=== PATIENT | female | born 1965 | race Caucasian/White ===

== ENCOUNTER 2018-10-04 06:41 | Emergency (ER) | payer BC ==
[2018-10-04 08:14] LABS: ABSOLUTE EOSINOPHILS # (AUTO) 0.3 10^3/uL (0.0-0.6); ABSOLUTE LYMPHOCYTES (AUTO) 1.1 10^3/uL (0.5-4.7); ABSOLUTE MONOCYTES (AUTO) 0.7 10^3/uL (0.1-1.4); ABSOLUTE NEUT (AUTO) 6.8 10^3/uL (1.7-8.2); BASOPHILS % (AUTO) 0.3 % (0-2); EOSINOPHILS % (AUTO) 3.5 % (0-6); HEMATOCRIT 48.4 % (36.0-47.0); HEMOGLOBIN 16.6 g/dL (12.0-15.5); LYMPHOCYTES % (AUTO) 12.6 % (13-45); MEAN CORPUSCULAR HEMOGLOBIN 32.6 pg (27.0-33.4); MEAN CORPUSCULAR HGB CONC 34.3 g/dL (32.0-36.0); MEAN CORPUSCULAR VOLUME 95 fl (80-97); MONOCYTES % (AUTO) 7.5 % (3-13); PLATELET COUNT 230 10^3/uL (150-450); RED BLOOD COUNT 5.08 10^6/uL (3.72-5.28); SEGMENTED NEUTROPHILS % (AUTO) 76.1 % (42-78); TOTAL CELLS COUNTED % (AUTO) 100 %; WHITE BLOOD COUNT 8.9 10^3/uL (4.0-10.5)
[2018-10-04] MEDS ORDERED: DIPHENHYDRAMINE HCL 50 MG/ML VIAL IV ONE (08:20)
[2018-10-04] MEDS ORDERED: KETOROLAC TROMETHAMINE INJ/PF 30 MG/1 ML SDV IV ONE (08:20)
[2018-10-04] MEDS ORDERED: NORMAL SALINE 1000 ML 1,000 ML IV ONE (08:20)
[2018-10-04] MEDS ORDERED: PROCHLORPERAZINE EDISYLATE INJ 10 MG/2 ML VIAL IM ONE (08:20)
[2018-10-04 08:38] LABS: ALANINE AMINOTRANSFERASE 20 U/L (9-52); ALBUMIN 4.7 g/dL (3.5-5.0); ALKALINE PHOSPHATASE 47 U/L (38-126); ANION GAP 10 (5-19); ASPARTATE AMINO TRANSFERASE 23 U/L (14-36); BILIRUBIN,DIRECT 0.3 mg/dL (0.0-0.4); BILIRUBIN,TOTAL 1.3 mg/dL (0.2-1.3); BLOOD UREA NITROGEN 14 mg/dL (7-20); CALCIUM 9.8 mg/dL (8.4-10.2); CARBON DIOXIDE 31 mmol/L (22-30); CHLORIDE 103 mmol/L (98-107); GLUCOSE 101 mg/dL (75-110); POTASSIUM 4.3 mmol/L (3.6-5.0); SODIUM 143.8 mmol/L (137-145); TOTAL PROTEIN 8.4 g/dL (6.3-8.2)
[2018-10-04 08:41] LABS: APPEARANCE,URINE CLEAR; BILIRUBIN,URINE NEGATIVE (NEGATIVE); COLOR,URINE YELLOW; GLUCOSE, URINE NEGATIVE (NEGATIVE); KETONES,URINE NEGATIVE (NEGATIVE); LEUKOCYTE ESTERASE,URINE NEGATIVE (NEGATIVE); NITRITE,URINE NEGATIVE (NEGATIVE); PROTEIN,URINE NEGATIVE (NEGATIVE); URINE SPECIFIC GRAVITY 1.017; UROBILINOGEN,URINE NEGATIVE mg/dL (<2.0)
--- NOTE | 2018-10-04 10:08 | ER Document Report ---
Entered by FLORESITA WHITNEY SCRIBE 10/04/18 0821 Acting as scribe for:ASHLEY FISHMAN MD ED General - General Chief Complaint: Vomiting Stated Complaint: VOMITTING Time Seen by Provider: 10/04/18 08:05 Primary Care Provider: LEO ALVAREZ MD [Primary Care Provider] - Follow up as needed Mode of Arrival: Ambulatory Information source: Patient Notes: 53-year-old female who presents to the emergency department today with complaints of a 3-day history of a GI illness. Patient states that x2 days ago her only symptom was really just a lack of appetite. Patient's states yesterday she developed some nausea without vomiting but was able to eat chicken noodle soup at around 1700 yesterday and kept it down. Patient states that she slept m ost of yesterday, stating that she had no energy. Patient states this morning when waking up she felt generally weak, drank a cup coffee and developed a headache shortly after. Patient states she took Imitrex today as she has a history of migraine headaches. Patient states that she noticed when she woke up this morning that she had bilateral shoulder and neck pain as if she "slept on it wrong". Patient states she has had some epigastric abdominal pain. Patient denies any photophobia. TRAVEL OUTSIDE OF THE [place] IN LAST 30 DAYS: No - Related Data Allergies/Adverse Reactions: No Known Allergies Allergy (Unverified 12/14/11 15:31) Past Medical History - General Information source: Patient - Social History Smoking Status: Former Smoker Frequency of alcohol use: Occasional Drug Abuse: None Lives with: Family Family History: Reviewed & Not Pertinent Neurological Medical History: Reports: Hx Migraine GI Medical History: Reports: Hx Gastroesophageal Reflux Disease Psychiatric Medical History: Reports: Hx Anxiety, Hx Depression Past Surgical History: Reports: Hx Section - x3, Hx Herniorrhaphy - Right inguinal - Immunizations Hx Diphtheria, Pertussis, Tetanus Vaccination: Yes Review of Systems - Review of Systems Constitutional: See HPI, Other - no appetite EENT: No symptoms reported Cardiovascular: No symptoms reported Respiratory: No symptoms reported Gastrointestinal: See HPI, Abdominal pain, Nausea. denies: Vomiting Genitourinary: No symptoms reported Female Genitourinary: No symptoms reported Musculoskeletal: See HPI, Neck pain, Other - shoulder pain Skin: No symptoms reported Hematologic/Lymphatic: No symptoms reported Neurological/Psychological: Other - denies photophobia -: Yes All other systems reviewed and negative Physical Exam - Vital signs Vitals: Temp Pulse Resp BP Pulse Ox 97.4 F 51 L 16 163/97 H 100 10/04/18 06:59 10/04/18 06:59 10/04/18 06:59 10/04/18 06:59 10/04/18 06:59 - Notes Notes: Physical Exam: General: Alert, appears well. HEENT: Normocephalic. Atraumatic. PERRL. Extraocular movements intact. Oropharynx clear. Dry mucous membranes. No posterior oropharynx erythema or exudate. Neck: Supple. Posterior cervical musculature tenderness with palpation, scalp musculature tenderness with palpation, trapezius tenderness with palpation. Respiratory: No respiratory distress. Clear and equal breath sounds bilaterally. Cardiovascular: Regular rate and rhythm. Abdominal: Epigastric tenderness with palpation.No distension. Normal Bowel Sounds. Back: Non-tender. No deformity or step off. Extremities: Moves all four extremities. Upper extremities: Normal inspection. Normal ROM. Lower extremities: Normal inspection. No edema. Normal ROM. Neurological: Normal cognition. AAOx4. Normal speech. Psychological: Normal affect. Normal Mood. Skin: Warm. Dry. Normal color. Course - Re-evaluation Re-evalutation: 10/04/18 10:12 Patient reports her headache is considerably better, nausea is gone. She is going to try oral fluids and if she keeps that down she will go home. 10/04/18 11:43 Patient was able to keep fluids down and feels comfortable going home. - Vital Signs Vital signs: Temp Pulse Resp BP Pulse Ox 97.4 F 51 L 16 163/97 H 100 10/04/18 06:59 10/04/18 06:59 10/04/18 06:59 10/04/18 06:59 10/04/18 06:59 - Laboratory Result Diagrams: 10/04/18 07:54 10/04/18 07:54 Laboratory results interpreted by me: 10/04/18 10/04/18 07:54 07:54 Hgb 16.6 H Hct 48.4 H Lymphocytes % 12.6 L Carbon Dioxide 31 H Total Protein 8.4 H Discharge - Discharge Clinical Impression: Muscle tension headache Nausea and vomiting Qualifiers: Vomiting type: unspecified Vomiting Intractability: non-intractable Qualified Code(s): R11.2 - Nausea with vomiting, unspecified Condition: Stable Disposition: HOME, SELF-CARE Additional Instructions: Headache: The physician does not feel that the headache you are experiencing has a serious underlying cause. Most headaches are due to emotional stress, with resultant muscle tension (tension headache). Occasionally, headaches are secondary to changes in the blood vessels of the scalp (vascular headache and migraine headache). Sometimes, a headache is the first symptom of another developing illness, such as a viral infection. You have no evidence of stroke, bleeding, meningitis, or other serious cause of your headache. The treatment of headaches varies with the severity and cause of the pain. Not all headaches need pain shots. In fact, there is evidence that using narcotics for headaches may make them worse in the long run. The physician will determine the therapy that's in your best interest. If you develop a fever, if the headache is different from any you've previously experienced, or if the headache progressively worsens, then call your physician at once or go to the emergency room. Vomiting: Vomiting can be part of many illnesses. Most cases of vomiting are due to gastroenteritis, usually a viral infection in the intestinal tract. There is no specific treatment. The disease will end by itself. For now, the main danger to your child is dehydration. During the first few hours of the illness, give clear liquids, such as Pedialyte. Try to give small quantities frequently, such as a teaspoon of liquid every minute or about an ounce of fluids every five to ten minutes. Medications may be prescribed by the physician for special cases. After an hour or two of fluids without vomiting, add rice cereal, toast, applesauce, or bananas and other more solid foods to the clear liquids. Call the physician or go to the hospital if vomiting increases or blood appears in the bowel movement or vomitus; if your child fails to improve, or if signs of dehydration occur (no wet diapers for eight to twelve hours, tongue and mouth become dry, not acting as alert as usual). Drink small sips cool clear liquids today. Rest and sleep in a cool dark quiet room. Take the medication as dispensed for nausea if needed. You also receive a prescription that you can fill later today if you find that you have continued nauseousness. Follow-up with your doctor tomorrow if not feeling better. RETURN TO THE EMERGENCY ROOM IF ANY NEW OR WORSENING SYMPTOMS. Prescriptions: Ondansetron [Zofran Odt 4 mg Tablet] 1 - 2 tab PO Q4H #10 tab.rapdis Forms: Return to Work Referrals: LEO ALVAREZ MD [Primary Care Provider] - Follow up as needed Scribe Attestation: 10/04/18 09:13 I personally performed the services described in the documentation, reviewed and edited the documentation which was dictated to the scribe in my presence, and it accurately records my words and actions. I personally performed the services described in the documentation, reviewed and edited the documentation which was dictated to the scribe in my presence, and it accurately records my words and actions.
[2018-10-04 10:33] LABS: LIPASE 131.4 U/L (23-300)
[2018-10-04] MEDS ORDERED: ONDANSETRON ODT 4 MG TAB (6 TAB/ER DISP) PO PRN (11:46)
[2018-10-04 12:26] VITALS: BP 138/76
== END 2018-10-04 12:35 | disposition home or self-care (01) ==
LOC: ER 06:41
DX: R11.2 Nausea with vomiting, unspecified (principal); G44.209 Tension-type headache, unspecified, not intractable; G43.909 Migraine, unspecified, not intractable, without status migrainosus; R10.13 Epigastric pain; M25.511 Pain in right shoulder; M25.512 Pain in left shoulder; M54.2 Cervicalgia; R63.0 Anorexia; Z87.891 Personal history of nicotine dependence
CPT/HCPCS: 99284; 96372; 96361; 96374; 96375; 36415; 83690; 85025; 80053; 81001; J1200; J1885; J0780; J7030

== ENCOUNTER 2019-12-04 10:10 | Emergency (ER) | payer BC ==
[2019-12-04] MEDS ORDERED: ONDANSETRON HCL INJ/PF 4 MG/2 ML SDV IV ONE (10:41)
[2019-12-04] MEDS ORDERED: DIPHENHYDRAMINE HCL 50 MG/ML VIAL IV ONE (11:10)
--- NOTE | 2019-12-04 11:11 | ER Document Report ---
ED General - General Chief Complaint: Vomiting Stated Complaint: HEADACHE,VOMITING,BODY ACHES Time Seen by Provider: 12/04/19 11:06 Primary Care Provider: YAMILET ALVAREZ MD [NO LOCAL MD] - Follow up as needed TRAVEL OUTSIDE OF THE [place] IN LAST 30 DAYS: No - HPI Patient complains to provider of: Headache, nausea, vomiting Notes: With a lengthy history of migraines presents after waking up this morning with another bad migraine 10/10 throbbing in nature without radiation is associated profound nausea vomiting. Hyperventilating as well describing tingling in her upper extremities. No focal neurologic deficit. Denies any head trauma. Denies any neck pain. Nothing makes the pain better or worse. Denies any fever or IV drug use. - Related Data Allergies/Adverse Reactions: No Known Allergies Allergy (Verified 12/04/19 10:15) Past Medical History - Social History Smoking Status: Current Every Day Smoker Family History: Reviewed & Not Pertinent Neurological Medical History: Reports: Hx Migraine Renal/ Medical History: Denies: Hx Peritoneal Dialysis GI Medical History: Reports: Hx Gastroesophageal Reflux Disease Psychiatric Medical History: Reports: Hx Anxiety, Hx Depression Past Surgical History: Reports: Hx Section - x3, Hx Herniorrhaphy - Right inguinal - Immunizations Hx Diphtheria, Pertussis, Tetanus Vaccination: Yes Review of Systems - Review of Systems Notes: REVIEW OF SYSTEMS: CONSTITUTIONAL: -fevers, -chills EENT: -eye pain, -difficulty swallowing, -nasal congestion CARDIOVASCULAR: -chest pain, -syncope. RESPIRATORY: -cough, -SOB GASTROINTESTINAL: positive Nausea and vomiting GENITOURINARY: -dysuria, -hematuria MUSCULOSKELETAL: -back pain, -neck pain SKIN: -rash or skin lesions. HEMATOLOGIC: -easy bruising or bleeding. LYMPHATIC: -swollen, enlarged glands. NEUROLOGICAL: positive headache PSYCHIATRIC: -anxiety, -depression. ALL OTHER SYSTEMS REVIEWED AND NEGATIVE. Physical Exam - Vital signs Vitals: Temp Pulse Resp BP Pulse Ox 97.5 F 58 L 16 146/104 H 100 12/04/19 10:20 12/04/19 10:20 12/04/19 10:20 12/04/19 10:20 12/04/19 10:20 Course - Re-evaluation Re-evalutation: 12/04/19 11:19 Appearing female in no acute distress presents with apparent acute exacerbation of her migraines. 12/04/19 12:46 Appearing female no acute distress given analgesia and antiemetics for headache with fluid resuscitation feeling markedly improved. Extensive lab work-up shows mild leukocytosis. CT angiogram head and neck unremarkable. Patient be discharged home with prescription for Imitrex at her request. Given strict return precautions venting should worsen or change please return - Vital Signs Vital signs: Temp Pulse Resp BP Pulse Ox 97.5 F 58 L 22 H 143/94 H 100 12/04/19 11:08 12/04/19 10:20 12/04/19 11:04 12/04/19 11:04 12/04/19 11:04 - Laboratory Result Diagrams: 12/04/19 11:03 12/04/19 11:03 Laboratory results interpreted by me: 12/04/19 12/04/19 11:03 11:03 WBC 13.4 H Hgb 16.5 H Hct 49.1 H Lymph % (Auto) 9.0 L Absolute Neuts (auto) 11.3 H Seg Neutrophils % 84.3 H Glucose 148 H Calcium 10.4 H - EKG Interpretation by Me Additional EKG results interpreted by me: 12/04/19 11:33 Normal sinus rhythm 52 bpm, normal NC, normal QRS, no ST elevations or depressions. Discharge - Discharge Clinical Impression: Muscle contraction headache Condition: Stable Disposition: HOME, SELF-CARE Instructions: Headache ([facility]) Prescriptions: Sumatriptan Succinate [Imitrex] 100 mg PO BID #6 tablet Referrals: YAMILET ALVAREZ MD [NO LOCAL MD] - Follow up as needed
[2019-12-04 11:18] LABS: ABSOLUTE BASOPHILS # (AUTO) 0.1 10^3/uL (0.0-0.2); ABSOLUTE EOSINOPHILS # (AUTO) 0.2 10^3/uL (0.0-0.6); ABSOLUTE LYMPHOCYTES (AUTO) 1.2 10^3/uL (0.5-4.7); ABSOLUTE MONOCYTES (AUTO) 0.6 10^3/uL (0.1-1.4); ABSOLUTE NEUT (AUTO) 11.3 10^3/uL (1.7-8.2); BASOPHILS % (AUTO) 0.5 % (0-2); EOSINOPHILS % (AUTO) 1.6 % (0-6); HEMATOCRIT 49.1 % (36.0-47.0); HEMOGLOBIN 16.5 g/dL (12.0-15.5); MEAN CORPUSCULAR HEMOGLOBIN 31.3 pg (27.0-33.4); MEAN CORPUSCULAR HGB CONC 33.6 g/dL (32.0-36.0); MEAN CORPUSCULAR VOLUME 93 fl (80-97); MONOCYTES % (AUTO) 4.6 % (3-13); PLATELET COUNT 269 10^3/uL (150-450); RED BLOOD COUNT 5.28 10^6/uL (3.72-5.28); RED CELL DISTRIBUTION WIDTH 13.3 % (11.5-14.0); SEGMENTED NEUTROPHILS % (AUTO) 84.3 % (42-78); TOTAL CELLS COUNTED % (AUTO) 100 %; WHITE BLOOD COUNT 13.4 10^3/uL (4.0-10.5)
[2019-12-04 11:38] LABS: ALBUMIN 4.7 g/dL (3.5-5.0); ALKALINE PHOSPHATASE 79 U/L (38-126); ANION GAP 9 (5-19); ASPARTATE AMINO TRANSFERASE 26 U/L (14-36); BLOOD UREA NITROGEN 12 mg/dL (7-20); CALCIUM 10.4 mg/dL (8.4-10.2); CARBON DIOXIDE 26 mmol/L (22-30); CHLORIDE 106 mmol/L (98-107); GLUCOSE 148 mg/dL (75-110); POTASSIUM 4.1 mmol/L (3.6-5.0); TOTAL PROTEIN 8.2 g/dL (6.3-8.2)
--- NOTE | 2019-12-04 12:08 | EKG REPORT ---
SEVERITY:- BORDERLINE ECG - SINUS BRADYCARDIA NONSPECIFIC INTRAVENTRICULAR CONDUCTION DELAY : Confirmed by: Grupo Sinclair MD 04-Dec-2019 12:08:19
--- NOTE | 2019-12-04 12:26 | RADIOLOGY REPORT (SQ) ---
EXAM DESCRIPTION: CTA NECK IMAGES COMPLETED DATE/TIME: 12/04/2019 12:06 pm REASON FOR STUDY: headache COMPARISON: None. TECHNIQUE: Axial dynamic scanning technique with dynamic contrast enhancement through the extra-vessel scrapper nial carotid and vertebral arteries. Multiplanar reconstruction. 3-D MIPS and Volume-rendered imag es acquired at the workstation and saved to PACS. Images are reviewed in soft tissue, bone, lung w indows. All CT scanners at this facility use dose modulation, iterative reconstruction, and/or weight based d osing when appropriate to reduce radiation dose to as low as reasonably achievable (ALARA). [facility]: Dose Right [facility]: CareDose [facility]: Dose Right [facility]: Teradose 4D [facility]: [employer] CONTRAST TYPE AND DOSE: 70 cc Omnipaque 350- low osmolar. RENAL FUNCTION: BUN 12 creatinine 0.71 LIMITATIONS: None. FINDINGS: AORTIC ARCH: Normal three-vessel origin. Bilateral subclavian arteries are patent. No d issection. RIGHT CAROTIDS: Patent common, internal and external carotid arteries without suggestion of significa nt stenosis or irregular plaque. No dissection. Tortuous ICA RIGHT VERTEBRAL: Patent. No dissection. LEFT CAROTIDS: Patent common, internal and external carotid arteries without suggestion of significan t stenosis or irregular plaque. No dissection. Tortuous ICA LEFT VERTEBRAL: Patent. No dissection. OTHER: No other significant finding. OTHER: 3-D reconstructions confirm findings. IMPRESSION: Essentially normal CTA of the extracranial carotid and vertebral arteries. The internal carotid arteries are somewhat tortuous. COMMENT: Quality ID #[id number]: Measurements of distal internal carotid diameter were used as the denomina tor for stenosis measurement. TECHNICAL DOCUMENTATION: JOB ID: [id number] Quality ID # [id number]: Final reports with documentation of one or more dose reduction techniques (e.g., Au tomated exposure control, adjustment of the mA and/or kV according to patient size, use of iterative reconstruction technique) 2010 [employer]- All Rights Reserved Reading location - IP/workstation name: [email or web address]
--- NOTE | 2019-12-04 12:36 | RADIOLOGY REPORT (SQ) ---
EXAM DESCRIPTION: CTA HEAD IMAGES COMPLETED DATE/TIME: 12/04/2019 12:05 pm REASON FOR STUDY: headache COMPARISON: None. TECHNIQUE: Post IV contrast scanning, thin section axial imaging through the brain to evaluate the a rterial structures. Source and MIP images are saved and reviewed on PACS. Advanced 3D imaging as volume-rendering, MIPs, SSD performed? No All CT scanners at this facility use dose modulation, iterative reconstruction, and/or weight based d osing when appropriate to reduce radiation dose to as low as reasonably achievable (ALARA). [facility]: Dose Right [facility]: CareDose [facility]: Dose Right [facility]: Teradose 4D [facility]: [employer] CONTRAST TYPE AND DOSE: contrast/concentration: Isovue 350.00 mmol/ml; Total Contrast Delivered: 70. 0 ml; Total Saline Delivered: 69.9 ml RENAL FUNCTION: BUN 12 creatinine 0.71 LIMITATIONS: None. FINDINGS: [place]: The anterior, middle, posterior cerebral arteries are all patent. No ev idence of aneurysm or focal stenosis. POSTERIOR CIRCULATION: The distal vertebral arteries are patent as is the basilar artery. No aneurysm . BRAIN: No gross enhancing lesions as visualized. The superior cerebral hemispheres are not included in the field of view. BONES: Intact as visualized. SINUSES: No fluid or mucosal thickening. OTHER: No other significant finding. IMPRESSION: NO CTA EVIDENCE OF STENOSIS OR ANEURYSM OF THE [place]. TECHNICAL DOCUMENTATION: JOB ID: [id number] Quality ID # [id number]: Final reports with documentation of one or more dose reduction techniques (e.g., Au tomated exposure control, adjustment of the mA and/or kV according to patient size, use of iterative reconstruction technique) 2010 [employer]- All Rights Reserved Reading location - IP/workstation name: [email or web address]
[2019-12-04 13:44] VITALS: BP 111/62
== END 2019-12-04 13:44 | disposition home or self-care (01) ==
LOC: ER 10:10
DX: R51 Headache (principal); R11.2 Nausea with vomiting, unspecified; D72.829 Elevated white blood cell count, unspecified; R06.4 Hyperventilation; R20.2 Paresthesia of skin; F17.200 Nicotine dependence, unspecified, uncomplicated; Z86.69 Personal history of other diseases of the nervous system and sense organs
CPT/HCPCS: 93005; 99284; 96374; 96375; 36415; 85025; 80053; 70496; 70498; 93010; J1200; J2405

== ENCOUNTER 2020-01-26 20:06 | Observation (INO) | payer BC ==
[2020-01-26] MEDS ORDERED: SUMATRIPTAN SUCCINATE 100 MG TABLET PO ONE (20:35)
[2020-01-26] MEDS ORDERED: SUMATRIPTAN SUCCINATE 100 MG TABLET ONE (20:39)
--- NOTE | 2020-01-26 20:41 | ER Document Report ---
ED Medical Screen (RME) - General Chief Complaint: Near Syncope Stated Complaint: RAPID ONSET DIZZINESS Time Seen by Provider: 01/26/20 20:31 Primary Care Provider: JULIO CESAR PALACIOS [Primary Care Provider] - Follow up as needed Mode of Arrival: Ambulatory Information source: Patient Notes: 54-year-old female presented to ED for complaint of dizziness lightheadedness and near syncope at work. She states it was almost of her headache break and she also got very dizzy and lightheaded. She thought she was going to pass out. States after she got dizzy and lightheaded then she left a headache. She does have a history of migraines. She does take Imitrex for her migraines. Have ordered her Imitrex p.o. the dose that she normally takes. She states her pain is a3/5 at this time. She is alert oriented respirations regular nonlabored speaking in full sentences. She does smoke 1 or 2 cigarettes a day rarely drinks alcohol does smoke marijuana. She is has a history of 3 C-sections right inguinal hernia repair migraine headaches and she lives with her significant other. Eulaliami TRAVEL OUTSIDE OF THE [place] IN LAST 30 DAYS: No - Related Data Allergies/Adverse Reactions: No Known Allergies Allergy (Verified 12/04/19 10:15) Past Medical History - Social History Chew tobacco use (# tins/day): No Frequency of alcohol use: Rare Drug Abuse: Marijuana Neurological Medical History: Reports: Hx Migraine Renal/ Medical History: Denies: Hx Peritoneal Dialysis GI Medical History: Reports: Hx Gastroesophageal Reflux Disease Psychiatric Medical History: Reports: Hx Anxiety, Hx Depression Past Surgical History: Reports: Hx Section - x3, Hx Herniorrhaphy - Right inguinal - Immunizations Hx Diphtheria, Pertussis, Tetanus Vaccination: Yes Physical Exam - Vital signs Vitals: Temp Pulse Resp BP Pulse Ox 98.0 F 52 L 17 132/79 H 97 01/26/20 20:16 01/26/20 20:16 01/26/20 20:16 01/26/20 20:16 01/26/20 20:16 Course - Vital Signs Vital signs: Temp Pulse Resp BP Pulse Ox 98.0 F 52 L 17 132/79 H 97 01/26/20 20:31 01/26/20 20:16 01/26/20 20:16 01/26/20 20:16 01/26/20 20:16 Doctor's Discharge - Discharge Referrals: LOCALMD,NO [Primary Care Provider] - Follow up as needed
[2020-01-26 21:19] LABS: APPEARANCE,URINE CLEAR; BILIRUBIN,URINE NEGATIVE (NEGATIVE); COLOR,URINE YELLOW; GLUCOSE, URINE NEGATIVE (NEGATIVE); KETONES,URINE NEGATIVE (NEGATIVE); LEUKOCYTE ESTERASE,URINE NEGATIVE (NEGATIVE); NITRITE,URINE NEGATIVE (NEGATIVE); PROTEIN,URINE NEGATIVE (NEGATIVE); URINE SPECIFIC GRAVITY 1.011; UROBILINOGEN,URINE NEGATIVE mg/dL (<2.0)
[2020-01-26 21:28] LABS: ALBUMIN 4.2 g/dL (3.5-5.0); ALKALINE PHOSPHATASE 69 U/L (38-126); ANION GAP 8 (5-19); ASPARTATE AMINO TRANSFERASE 31 U/L (14-36); BILIRUBIN,DIRECT 0.3 mg/dL (0.0-0.4); BILIRUBIN,TOTAL 0.6 mg/dL (0.2-1.3); BLOOD UREA NITROGEN 12 mg/dL (7-20); CALCIUM 8.7 mg/dL (8.4-10.2); CARBON DIOXIDE 26 mmol/L (22-30); CHLORIDE 105 mmol/L (98-107); CREATINE KINASE 95 U/L (30-135); GLUCOSE 85 mg/dL (75-110); POTASSIUM 4.8 mmol/L (3.6-5.0); TOTAL PROTEIN 7.1 g/dL (6.3-8.2)
[2020-01-26 21:32] LABS: ABSOLUTE BASOPHILS # (AUTO) 0.1 10^3/uL (0.0-0.2); ABSOLUTE EOSINOPHILS # (AUTO) 0.3 10^3/uL (0.0-0.6); ABSOLUTE LYMPHOCYTES (AUTO) 1.7 10^3/uL (0.5-4.7); ABSOLUTE MONOCYTES (AUTO) 0.7 10^3/uL (0.1-1.4); ABSOLUTE NEUT (AUTO) 5.3 10^3/uL (1.7-8.2); BASOPHILS % (AUTO) 0.7 % (0-2); EOSINOPHILS % (AUTO) 3.9 % (0-6); HEMATOCRIT 44.5 % (36.0-47.0); HEMOGLOBIN 15.1 g/dL (12.0-15.5); LYMPHOCYTES % (AUTO) 20.8 % (13-45); MEAN CORPUSCULAR HEMOGLOBIN 31.7 pg (27.0-33.4); MEAN CORPUSCULAR HGB CONC 33.8 g/dL (32.0-36.0); MEAN CORPUSCULAR VOLUME 94 fl (80-97); PLATELET COUNT 262 10^3/uL (150-450); RED BLOOD COUNT 4.75 10^6/uL (3.72-5.28); RED CELL DISTRIBUTION WIDTH 13.1 % (11.5-14.0); SEGMENTED NEUTROPHILS % (AUTO) 65.6 % (42-78); TOTAL CELLS COUNTED % (AUTO) 100 %
[2020-01-26] MEDS ORDERED: RINGERS SOLUTION,LACTATED 1,000 ML IV ONE (23:12)
--- NOTE | 2020-01-26 23:21 | ER Document Report ---
ED Dizziness/Weakness - General Chief Complaint: Near Syncope Stated Complaint: RAPID ONSET DIZZINESS Time Seen by Provider: 01/26/20 20:31 Mode of Arrival: Ambulatory Information source: Patient Notes: Patient is a 54-year-old male comes emergency room complaining of near syncopal experience. 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 She has just recently changed her shift times and is working evening to late shift. She states it got very hot inside the store today she was exceptionally busy she was not drinking or eating well she was standing at the register when she felt lightheaded and dizzy a follow employee came over and noticed that she did not look well she took over for her and patient sat down and actually started to feel slightly better. She states this is happened to her on a few occasions recently but cannot tell me exactly when. Patient has a long history of migraine headaches and has been on propanolol for the last 20 to 25 years on the same dosage. Patient denies having a complete syncopal episode she did not fall or have any injuries. Patient did get slightly short of breath with this. She also admits to continuing occasional smoking. But she is denies any chest pain. Patient denies any nausea vomiting or diarrhea. She has not been tested for COVID-19 in the past. She does work as a cashier parking lot in [employer] and is around lots of people who do not wear a mask. TRAVEL OUTSIDE OF THE [place] IN LAST 30 DAYS: No - HPI Patient complains to provider of: Dizziness, Weakness Onset: Just prior to arrival Onset/Duration: Sudden Quality of pain: No pain Severity: Moderate Pain Level: 3 Context: denies: Vertigo Associated symptoms: Short of breath, Weak all over. denies: Recent trauma Baseline gait: Walks w/o assistance - Related Data Allergies/Adverse Reactions: No Known Allergies Allergy (Verified 12/04/19 10:15) Past Medical History - General Information source: Patient - Social History Smoking Status: Current Every Day Smoker Cigarette use (# per day): Yes - Quarter pack a day Chew tobacco use (# tins/day): No Smoking Education Provided: Yes Frequency of alcohol use: Rare Drug Abuse: Marijuana Lives with: Family Family History: Reviewed & Not Pertinent Patient has homicidal ideation: No Neurological Medical History: Reports: Hx Migraine Renal/ Medical History: Denies: Hx Peritoneal Dialysis GI Medical History: Reports: Hx Gastroesophageal Reflux Disease Psychiatric Medical History: Reports: Hx Anxiety, Hx Depression Past Surgical History: Reports: Hx Section - x3, Hx Herniorrhaphy - Right inguinal - Immunizations Hx Diphtheria, Pertussis, Tetanus Vaccination: Yes Review of Systems - Review of Systems Constitutional: No symptoms reported EENT: No symptoms reported Cardiovascular: See HPI, Other - Bradycardic Respiratory: Cough, Short of breath Gastrointestinal: No symptoms reported Genitourinary: No symptoms reported Female Genitourinary: No symptoms reported Musculoskeletal: No symptoms reported Skin: No symptoms reported Hematologic/Lymphatic: No symptoms reported Neurological/Psychological: No symptoms reported -: Yes All other systems reviewed and negative Physical Exam - Vital signs Vitals: Temp Pulse Resp BP Pulse Ox 98.0 F 52 L 17 132/79 H 97 01/26/20 20:16 01/26/20 20:16 01/26/20 20:16 01/26/20 20:16 01/26/20 20:16 Interpretation: Hypertensive, Bradycardic - Notes Notes: PHYSICAL EXAMINATION: GENERAL: Patient is a well-nourished well-developed 4-year-old female no apparent distress on examination this evening. She does appear somewhat weak. She is wearing a personalized fan around her neck to keep cool. HEAD: Atraumatic, normocephalic. EYES: Pupils equal round and reactive to light, extraocular movements intact, conjunctiva are normal. ENT: Nares patent, oropharynx clear without exudates. Moist mucous membranes. NECK: Normal range of motion, supple without lymphadenopathy LUNGS: Auscultation patient's lungs shows bilateral breath sounds of breath sounds decreased throughout faint rhonchi heard on the right upper lobe. No wheezes noted at this time. HEART: Bradycardic rate and rhythm without murmurs ABDOMEN: Soft, nontender, nondistended abdomen. No guarding, no rebound. No masses appreciated. Female : deferred Musculoskeletal: Normal range of motion, no pitting or edema. No cyanosis. NEUROLOGICAL: . Normal speech, normal gait. Normal sensory, motor exams PSYCH: Normal mood, normal affect. SKIN: Warm, Dry, normal turgor, no rashes or lesions noted. Course - Re-evaluation Re-evalutation: 01/27/20 04:06 Patient staying here is been somewhat uneventful. She has been running in the low 40s when at rest on her heart rate. Most of her work-up is come back normal no abnormalities on her lab work x-ray was negative troponin was negative patient still slightly dizzy when she gets up. At this point I contacted the hospitalist who felt that patient was probably having symptomatic bradycardia secondary to her propanolol. He wanted us to try glucagon which can be a converter of the the beta-blockers without intake you back up to normal rhythm. We attempted to bolus is 1 of 3 105 mg of the glucagon with minimal success with the pressure remaining high and heart rate only minimally moving into the 50s for short period of time. Patient will back to relax and again heart rates went back down. I recontacted the hospitalist who is agreed to place patient in and monitor her for the symptomatic bradycardia. - Vital Signs Vital signs: Temp Pulse Resp BP Pulse Ox 97.7 F 61 18 143/85 H 99 01/27/20 06:13 01/27/20 07:00 01/27/20 06:13 01/27/20 06:13 01/27/20 06:13 - Laboratory Result Diagrams: 01/26/20 20:44 01/26/20 20:44 Discharge - Discharge Clinical Impression: Symptomatic bradycardia Condition: Stable Disposition: ADMITTED INPATIENT Admitting Provider: Sav (Hospitalist) Unit Admitted: Telemetry
--- NOTE | 2020-01-27 00:03 | RADIOLOGY REPORT (SQ) ---
CLINICAL INDICATION: cough. TECHNIQUE: A single portable AP view was obtained of the chest at 2322 hours. January 26, 2020 COMPARISON: None. FINDINGS: The cardiomediastinal silhouette appears prominent. The lungs are grossly clear. No evidence of effusion or pneumothorax. The visualized bones are unremarkable. IMPRESSION: No evidence of active intrathoracic disease.
[2020-01-27] MEDS ORDERED: GLUCAGON,HUMAN RECOMB 1 MG INJ IV STA ×2 (01:36→02:52)
[2020-01-27] MEDS ORDERED: IPRATROPIUM/ALBUTEROL 0.5-2.5 MG/3 ML AMPUL NEB PRN (05:41)
[2020-01-27] MEDS ORDERED: ONDANSETRON HCL INJ/PF 4 MG/2 ML SDV IV PRN (05:41)
[2020-01-27] MEDS ORDERED: TEMAZEPAM 7.5 MG CAPSULE PO PRN (05:41)
[2020-01-27] MEDS ORDERED: ACETAMINOPHEN 325 MG TABLET PO PRN (05:41)
[2020-01-27] MEDS ORDERED: PROMETHAZINE HCL INJ 25 MG/1 ML VIAL IV PRN (05:41)
--- NOTE | 2020-01-27 06:07 | PDOC H&P ---
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 Patient stated that while at work today she suddenly felt lightheaded and was feeling like she is going to pass out, patient denies any palpitation, prior history of syncope or presyncope, any cardiac history, any seizure disorder, stating that she is very busy at work and has not been eating or drinking much, denies any nausea or vomiting, or any fever, chills, chest pain, abdominal pain, diarrhea, constipation or any urinary symptoms. Patient does take propranolol for her migraine headache and has never had any problem with it. In ED her CBC CMP and troponins were within normal limits, EKG showed sinus rhythm, patient was given a dose of glucagon however patient still remained bradycardic and hospitalist consulted for admission. Past Medical History Neurological Medical History: Reports: Migraine GI Medical History: Reports: Gastroesophageal Reflux Disease Psychiatric Medical History: Reports: Depression Past Surgical History Past Surgical History: Reports: Section - x3, Herniorrhaphy - Right inguinal Social History Lives with: Family Smoking Status: Current Every Day Smoker Electronic Cigarette use?: No Family History Family History: Reviewed & Not Pertinent Parental Family History Reviewed: Yes Children Family History Reviewed: Yes Sibling(s) Family History Reviewed.: Yes Medication/Allergy Home Medications: Citalopram Hydrobromide [Celexa 20 Mg Tablet] 40 mg PO 09/20/11 Esomeprazole Magnesium [Nexium] 40 tab PO 09/20/11 Ferrous Sulfate [Iron] 325 mg PO DAILY 09/20/11 Propranolol HCl [Inderal La] 60 mg PO 09/20/11 Benzonatate [Tessalon Perles 100 mg Capsule] 100 mg PO Q8HP PRN #40 capsule 06/09/14 Clonazepam [Klonopin 0.5 mg Tablet Rapid Dissolve] 1 tab PO DAILY 06/09/14 Phenylephrine HCl/Cod/Prometh [Phenergan Vc-Codeine Syrup] 5 ml PO QIDP PRN #120 syrup 06/09/14 Oxycodone HCl/Acetaminophen [Percocet 10-325 Mg Tablet] 1 each PO Q4HP PRN #15 tablet 07/15/14 Ondansetron [Zofran Odt 4 mg Tablet] 1 - 2 tab PO Q4H #10 tab.rapdis 10/04/18 Sumatriptan Succinate [Imitrex] 100 mg PO BID #6 tablet 12/04/19 Allergies/Adverse Reactions: No Known Allergies Allergy (Verified 12/04/19 10:15) Review of Systems Review of Systems: as per hpi Physical Exam Vital Signs: Temp Pulse Resp BP Pulse Ox 98.0 F 52 L 16 135/75 H 96 01/26/20 20:31 01/26/20 20:16 01/27/20 05:10 01/27/20 05:10 01/27/20 05:10 Intake & Output 01/25/20 01/26/20 01/27/20 06:59 06:59 06:59 Intake Total 1000 Balance 1000 Weight 63.503 kg General appearance: PRESENT: no acute distress, well-developed, well-nourished Head exam: PRESENT: atraumatic, normocephalic Respiratory exam: PRESENT: clear to auscultation christi. ABSENT: rales, rhonchi, wheezes Cardiovascular exam: PRESENT: RRR. ABSENT: diastolic murmur, rubs, systolic murmur GI/Abdominal exam: PRESENT: normal bowel sounds, soft. ABSENT: distended, guarding, mass, organolmegaly, rebound, tenderness Neurological exam: PRESENT: alert, awake, oriented to person, oriented to place, oriented to time, oriented to situation, CN II-XII grossly intact. ABSENT: motor sensory deficit Skin exam: PRESENT: dry, intact, warm. ABSENT: cyanosis, rash Results Laboratory Results: 01/26/20 20:44 01/26/20 20:44 01/26/20 01/26/20 01/26/20 20:44 20:44 20:44 WBC 8.0 RBC 4.75 Hgb 15.1 Hct 44.5 MCV 94 MCH 31.7 MCHC 33.8 RDW 13.1 Plt Count 262 Seg Neutrophils % 65.6 Sodium 138.5 Potassium 4.8 Chloride 105 Carbon Dioxide 26 Anion Gap 8 BUN 12 Creatinine 0.62 Est GFR ( Amer) > 60 Glucose 85 Calcium 8.7 Total Bilirubin 0.6 AST 31 Alkaline Phosphatase 69 Total Protein 7.1 Albumin 4.2 Urine Color YELLOW Urine Appearance CLEAR Urine pH 6.0 Ur Specific [place] 1.011 Urine Protein NEGATIVE Urine Glucose (UA) NEGATIVE Urine Ketones NEGATIVE Urine Blood NEGATIVE Urine Nitrite NEGATIVE Ur Leukocyte Esterase NEGATIVE 01/26/20 01/26/20 20:44 20:44 Creatine Kinase 95 Troponin I < 0.012 Impressions: Chest X-Ray 01/26/20 23:11 IMPRESSION: No evidence of active intrathoracic disease. Assessment and Plan - Diagnosis (1) Pre-syncope Is this a current diagnosis for this admission?: Yes Plan: Likely vasovagal or bradycardia caused by beta-blockers. Admit to telemetry, monitor vitals, monitor electrolytes and volume status. (2) Migraine headache Qualifiers: Migraine type: without aura Is this a current diagnosis for this admission?: Yes Plan: Resume home meds. (3) Symptomatic bradycardia Is this a current diagnosis for this admission?: Yes Plan: Denies any history of CAD, denies any history of hypothyroidism. Likely beta- blockers. Admit to telemetry, hold beta-blockers, consult cardiology. - Time Time Spent with patient: 25-34 minutes Medications reviewed and adjusted accordingly: Yes Anticipated Discharge Disposition: Home, Self Care Anticipated Discharge Timeframe: within 24 hours
[2020-01-27] MEDS: HEPARIN SOD (PORCINE) 5,000 UNIT/ML 1 ML VIAL SUBCUT SCH ×3 (06:42→22:05)
--- NOTE | 2020-01-27 10:34 | EKG REPORT ---
SEVERITY:- BORDERLINE ECG - SINUS RHYTHM PROBABLE LEFT ATRIAL ABNORMALITY : Confirmed by: Montserrat Preston MD 27-Jan-2020 10:34:04
--- NOTE | 2020-01-27 11:37 | PDOC CONSULTATION ---
Consultation Consult Date: 01/27/20 Attending physician:: DAGOBERTO PENNY Provider Consulted: FARNAZ LEE Consult reason:: Presyncope History of Present Illness Admission Date/PCP: 01/27/20 04:21 History of Present Illness: SHERMAN MOONEY is a 54 year old female with history of migraine headaches treated with propranolol 60mg qd for many years, anxiety, GERD and hip bursitis who is consulted to our service for evaluation of presnycope. The patient had been in her usual state of health until yesterday when, while at work, she experienced and episode of presyncope. She had been working at [employer] for several hours on her feet and with poor to low oral intake when she felt very weak and hot, this was followed by dizziness and lightheadedness, cold sweat and a sense of passing out. She sat on her floor and felt slightly better but then developed a migraine headache. She was treated with one dose of Imitrex in the ED, her BP was normal and her pulse was documented at 52 bpm. Her ekg demonstrated sinus bradycardia with RSR' in V1 approaching IRBBB. Since adm ission she had done well and without any cardiac symptoms or recurrence of index symptoms. Her telemetry shows sinus bradycardia without significant AVB. This morning she feels at her baseline. Past Medical History Neurological Medical History: Reports: Migraine GI Medical History: Reports: Gastroesophageal Reflux Disease Psychiatric Medical History: Reports: Depression Past Surgical History Past Surgical History: Reports: Section - x3, Herniorrhaphy - Right inguinal Social History Lives with: Family Smoking Status: Current Every Day Smoker Electronic Cigarette use?: No Drugs: Marijuana Family History Family History: Reviewed & Not Pertinent Parental Family History Reviewed: Yes Children Family History Reviewed: Yes Sibling(s) Family History Reviewed.: Yes Medication/Allergy Home Medications: Citalopram Hydrobromide [Celexa 20 Mg Tablet] 40 mg PO DAILY 09/20/11 Esomeprazole Magnesium [Nexium] 40 tab PO DAILY 09/20/11 Propranolol HCl [Inderal La] 60 mg PO DAILY 09/20/11 Sumatriptan Succinate [Imitrex] 100 mg PO BID #6 tablet 12/04/19 Meloxicam [Mobic 7.5 Mg Tablet] 7.5 mg PO BID 01/27/20 Allergies/Adverse Reactions: No Known Allergies Allergy (Verified 12/04/19 10:15) Physical Exam Vital Signs: Temp Pulse Resp BP Pulse Ox 97.7 F 58 L 16 143/85 H 99 01/27/20 06:13 01/27/20 10:05 01/27/20 10:05 01/27/20 06:13 01/27/20 10:05 Intake & Output 01/26/20 01/27/20 01/28/20 06:59 06:59 06:59 Intake Total 1000 Balance 1000 Weight 79.4 kg General appearance: PRESENT: no acute distress, cooperative, well-developed, well-nourished Head exam: PRESENT: normocephalic Mouth exam: PRESENT: moist Neck exam: PRESENT: full ROM Respiratory exam: PRESENT: clear to auscultation christi, symmetrical, unlabored Cardiovascular exam: PRESENT: bradycardia, RRR, +S1, +S2. ABSENT: gallop, sy stolic murmur Neurological exam: PRESENT: alert, awake, oriented to person, oriented to place, oriented to time Results Laboratory Results: 01/26/20 20:44 01/26/20 20:44 01/26/20 01/26/20 01/26/20 20:44 20:44 20:44 WBC 8.0 RBC 4.75 Hgb 15.1 Hct 44.5 MCV 94 MCH 31.7 MCHC 33.8 RDW 13.1 Plt Count 262 Seg Neutrophils % 65.6 Sodium 138.5 Potassium 4.8 Chloride 105 Carbon Dioxide 26 Anion Gap 8 BUN 12 Creatinine 0.62 Est GFR ( Amer) > 60 Glucose 85 Calcium 8.7 Total Bilirubin 0.6 AST 31 Alkaline Phosphatase 69 Total Protein 7.1 Albumin 4.2 TSH Urine Color YELLOW Urine Appearance CLEAR Urine pH 6.0 Ur Specific [place] 1.011 Urine Protein NEGATIVE Urine Glucose (UA) NEGATIVE Urine Ketones NEGATIVE Urine Blood NEGATIVE Urine Nitrite NEGATIVE Ur Leukocyte Esterase NEGATIVE 01/26/20 20:44 WBC RBC Hgb Hct MCV MCH MCHC RDW Plt Count Seg Neutrophils % Sodium Potassium Chloride Carbon Dioxide Anion Gap BUN Creatinine Est GFR ( Amer) Glucose Calcium Total Bilirubin AST Alkaline Phosphatase Total Protein Albumin TSH 2.36 Urine Color Urine Appearance Urine pH Ur Specific [place] Urine Protein Urine Glucose (UA) Urine Ketones Urine Blood Urine Nitrite Ur Leukocyte Esterase 01/26/20 01/26/20 20:44 20:44 Creatine Kinase 95 Troponin I < 0.012 Impressions: Chest X-Ray 01/26/20 23:11 IMPRESSION: No evidence of active intrathoracic disease. 01/26/20 20:44 01/26/20 20:44 MCV 94 fl (80-97) 01/26/20 20:44 MCH 31.7 pg (27.0-33.4) 01/26/20 20:44 MCHC 33.8 g/dL (32.0-36.0) 01/26/20 20:44 RDW 13.1 % (11.5-14.0) 01/26/20 20:44 Seg Neutrophils % 65.6 % (42-78) 01/26/20 20:44 Chloride 105 mmol/L (98-107) 01/26/20 20:44 Carbon Dioxide 26 mmol/L (22-30) 01/26/20 20:44 Anion Gap 8 (5-19) 01/26/20 20:44 Est GFR ( Amer) > 60 (>60) 01/26/20 20:44 Glucose 85 mg/dL (75-110) 01/26/20 20:44 Calcium 8.7 mg/dL (8.4-10.2) 01/26/20 20:44 Total Bilirubin 0.6 mg/dL (0.2-1.3) 01/26/20 20:44 AST 31 U/L (14-36) 01/26/20 20:44 Alkaline Phosphatase 69 U/L (38-126) 01/26/20 20:44 Total Protein 7.1 g/dL (6.3-8.2) 01/26/20 20:44 Albumin 4.2 g/dL (3.5-5.0) 01/26/20 20:44 TSH 2.36 uIU/mL (0.47-4.68) 01/26/20 20:44 Urine Color YELLOW 01/26/20 20:44 Urine Appearance CLEAR 01/26/20 20:44 Urine pH 6.0 (5.0-9.0) 01/26/20 20:44 Ur Specific [place] 1.011 01/26/20 20:44 Urine Protein NEGATIVE mg/dL (NEGATIVE) 01/26/20 20:44 Urine Glucose (UA) NEGATIVE mg/dL (NEGATIVE) 01/26/20 20:44 Urine Ketones NEGATIVE mg/dL (NEGATIVE) 01/26/20 20:44 Urine Blood NEGATIVE (NEGATIVE) 01/26/20 20:44 Urine Nitrite NEGATIVE (NEGATIVE) 01/26/20 20:44 Ur Leukocyte Esterase NEGATIVE (NEGATIVE) 01/26/20 20:44 01/26/20 01/26/20 20:44 20:44 Creatine Kinase 95 Troponin I < 0.012 Current Medication List Generic Name Dose Route Start Last Admin Trade Name Emmanuel PRN Reason Stop Dose Admin Acetaminophen 325 mg 01/27/20 05:41 Tylenol 325 Mg Tablet PO 02/26/20 05:40 Q4HP PRN FEVER >101 Albuterol/Ipratropium 3 ml 01/27/20 05:41 Duoneb 3 Ml Ampul NEB 02/26/20 05:40 RTQ6HP PRN SHORTNESS OF BREATH Famotidine 20 mg 01/27/20 10:00 Pepcid 20 Mg Tablet PO 02/26/20 09:59 Q12 SHAHIDA Heparin Sodium (Porcine) 5,000 unit 01/27/20 06:00 01/27/20 06:42 Heparin Inj 5,000 Units/Ml 1 Ml Vial SUBCUT 02/26/20 05:59 Not Given Q8 SHAHIDA Ondansetron HCl 4 mg 01/27/20 05:41 Zofran Inj/Pf 4 Mg/2 Ml Sdv IV 02/26/20 05:40 Q4HP PRN FOR NAUSEA/VOMITING Oxycodone/Acetaminophen 1 tab 01/27/20 05:41 Percocet 5-325 Mg Tablet PO 02/03/20 05:40 Q4HP PRN FOR PAIN SCALE 3-5 Promethazine HCl 12.5 mg 01/27/20 05:41 Phenergan Inj 25 Mg/1 Ml Vial IV 02/26/20 05:40 Q4HP PRN FOR NAUSEA/VOMITING Temazepam 7.5 mg 01/27/20 05:41 Restoril 7.5 Mg Capsule PO 02/03/20 05:40 HSP PRN SLEEP OR INSOMNIA Discontinued Medications Generic Name Dose Route Start Last Admin Trade Name Emmanuel PRN Reason Stop Dose Admin Glucagon 3 mg 01/27/20 01:36 01/27/20 02:00 Glucagen Inj 1 Mg Vial IV 01/27/20 01:37 3 mg ONCE STA Administration Glucagon 5 mg 01/27/20 02:52 01/27/20 03:43 Glucagen Inj 1 Mg Vial IV 01/27/20 02:53 5 mg ONCE STA Administration Lactated Ringer's 1,000 mls @ 0 mls/hr 01/26/20 23:12 01/27/20 02:03 Lactated Ringers 1000 Ml Iv Soln IV 01/26/20 23:13 Infused NOW ONE Infusion Wide Open Sumatriptan Succinate 100 mg 01/26/20 20:35 01/26/20 21:00 Imitrex 100 Mg Tablet PO 01/26/20 20:36 Not Given NOW ONE Sumatriptan Succinate Confirm 01/26/20 20:39 01/26/20 21:01 Imitrex 100 Mg Tablet Administered 01/26/20 20:40 100 mg Dose Administration 100 mg .ROUTE .[facility] ONE Assessment & Plan - Diagnosis (1) Pre-syncope Is this a current diagnosis for this admission?: Yes Plan: The patient has a normal cardiac exam and she is chronotropically competent as demonstrated by increasing her heart rate to the 70's with leg kicks while in bed. Her sinus bradycardia is likely from her propranolol and unlikely to cause her presyncopal event as her ekg did not demonstrate malignant or pathological blocks and her symptoms are very suggestive of a vasovagal event. Recommendations: -Wean off propranolol and find alternative preventive treatment for her migraine YE's. -No further inpatient cardiac work up. -I will arrange for outpatient [employer] monitor and cardiology follow up. -I will sign off the case for now, please reconsult if clinically indicated.
[2020-01-27] MEDS: FAMOTIDINE 20 MG TABLET PO SCH ×2 (11:46→22:06)
[2020-01-28] MEDS: OXYCODONE-ACETAMINOPHEN 5-325 MG TABLET PO PRN ×2 (02:01→08:05)
[2020-01-28] MEDS: HEPARIN SOD (PORCINE) 5,000 UNIT/ML 1 ML VIAL SUBCUT SCH ×3 (05:30→21:26)
[2020-01-28] MEDS: CITALOPRAM HYDROBROMIDE 20 MG TABLET PO SCH (09:30)
[2020-01-28] MEDS: FAMOTIDINE 20 MG TABLET PO SCH ×2 (09:30→21:18)
[2020-01-28] MEDS: MELOXICAM 7.5 MG TABLET PO SCH ×2 (09:30→17:13)
[2020-01-28] MEDS ORDERED: SUMATRIPTAN SUCCINATE 100 MG TABLET PO PRN (10:00)
[2020-01-28] MEDS ORDERED: ACETAMINOPHEN 325 MG TABLET PO PRN (12:54)
[2020-01-28] MEDS ORDERED: DIPHENHYDRAMINE HCL 50 MG/ML VIAL IV ONE (12:55)
[2020-01-28] MEDS ORDERED: KETOROLAC TROMETHAMINE INJ/PF 30 MG/1 ML SDV IV ONE (12:55)
[2020-01-28] MEDS ORDERED: METOCLOPRAMIDE HCL INJ/PF 10 MG/2 ML SDV IV ONE (12:55)
--- NOTE | 2020-01-28 13:03 | PDOC PROGRESS REPORT ---
Subjective Progress Note for:: 01/28/20 Subjective:: This morning, patient complains of headache, dry heaving and a lot of nausea. She states that it feels like a migraine is starting to come on. Denies fever but admits to chills. States the room feels cold. Has not been noted to be febrile. Reason For Visit: PRESYNCOPE,SYMPTOMATIC BRADYCARDIA Physical Exam Vital Signs: Temp Pulse Resp BP Pulse Ox 97.6 F 76 22 H 112/75 100 01/28/20 10:00 01/28/20 07:58 01/28/20 07:58 01/28/20 07:58 01/28/20 07:58 Intake & Output 01/27/20 01/28/20 01/29/20 06:59 06:59 06:59 Intake Total 1000 1280 100 Balance 1000 1280 100 Weight 79.4 kg 79.4 kg General appearance: PRESENT: no acute distress, cooperative Neck exam: ABSENT: JVD Respiratory exam: PRESENT: clear to auscultation christi, symmetrical, unlabored. ABSENT: tachypnea, wheezes Cardiovascular exam: PRESENT: bradycardia, +S1, +S2. ABSENT: irregular rhythm GI/Abdominal exam: PRESENT: soft. ABSENT: rebound, rigid, tenderness Neurological exam: PRESENT: alert, awake, oriented to person, oriented to place, oriented to time, oriented to situation Results Laboratory Results: 01/26/20 20:44 01/26/20 20:44 01/26/20 20:44 Clean Catch Midstream Urine Culture - Final Mixed Urogenital Fanny 01/26/20 01/26/20 20:44 20:44 Creatine Kinase 95 Troponin I < 0.012 Impressions: Chest X-Ray 01/26/20 23:11 IMPRESSION: No evidence of active intrathoracic disease. Assessment and Plan - Diagnosis (1) Pre-syncope Is this a current diagnosis for this admission?: Yes Plan: Likely vasovagal. Evaluated by cardiology Will follow-up with Dr. Howell in the clinic (2) Sinus bradycardia Is this a current diagnosis for this admission?: Yes Plan: Secondary to chronic propranolol use. Propranolol has been discontinued. Patient noted to have good chronotropic response on ambulation. Keep off beta-blockers. (3) Migraine headache Qualifiers: Migraine type: without aura Is this a current diagnosis for this admission?: Yes Plan: Seems to be having migraine this morning. She has been receiving her taniya triptan which she takes at home. I will try migraine cocktail with IV Reglan, Toradol and Benadryl. We will substitute propranolol for topiramate for migraine prophylaxis. (4) Nausea and vomiting Qualifiers: Vomiting type: unspecified Vomiting Intractability: non-intractable Qualified Code(s): R11.2 - Nausea with vomiting, unspecified Is this a current diagnosis for this admission?: Yes Plan: Likely secondary to migraine. Antiemetics provided. - Time Time Spent with patient: Less than 15 minutes Anticipated Discharge Disposition: Home, Self Care Anticipated Discharge Timeframe: within 24 hours
[2020-01-28] MEDS: TOPIRAMATE 25 MG TABLET PO SCH (13:47)
[2020-01-28] MEDS ORDERED: NAPROXEN 375 MG TABLET PO PRN (18:00)
[2020-01-29] MEDS: HEPARIN SOD (PORCINE) 5,000 UNIT/ML 1 ML VIAL SUBCUT SCH (05:18)
[2020-01-29] MEDS: FAMOTIDINE 20 MG TABLET PO SCH (09:24)
[2020-01-29] MEDS: CITALOPRAM HYDROBROMIDE 20 MG TABLET PO SCH (09:24)
[2020-01-29] MEDS: TOPIRAMATE 25 MG TABLET PO SCH (09:24)
[2020-01-29] MEDS: MELOXICAM 7.5 MG TABLET PO SCH (09:25)
--- NOTE | 2020-01-29 12:25 | PDOC DISCHARGE SUMMARY ---
Impression - Admit/DC Date/PCP Admission Date/Primary Care Provider: 01/27/20 04:21 Discharge Date: 01/29/20 - Discharge Diagnosis (1) Pre-syncope Is this a current diagnosis for this admission?: Yes (2) Sinus bradycardia Is this a current diagnosis for this admission?: Yes (3) Migraine headache Is this a current diagnosis for this admission?: Yes (4) Nausea and vomiting Is this a current diagnosis for this admission?: Yes - Additional Information Discharge Diet: As Tolerated, Regular Discharge Activity: Activity As Tolerated Referrals: GEOVANI GOMEZ MD [ACTIVE STAFF] - LOCALMDJULIO CESAR [NO LOCAL MD] - Follow up as needed Prescriptions: Topiramate [Topamax 25 mg Tablet] 50 mg PO DAILY #30 tablet Home Medications: Citalopram Hydrobromide [Celexa 20 mg Tablet] 40 mg PO DAILY 09/20/11 Esomeprazole Magnesium [Nexium] 40 tab PO DAILY 09/20/11 Sumatriptan Succinate [Imitrex] 100 mg PO BID #6 tablet 12/04/19 Meloxicam [Mobic 7.5 mg Tablet] 7.5 mg PO BID 01/27/20 Topiramate [Topamax 25 mg Tablet] 50 mg PO DAILY #30 tablet 01/29/20 History of Present Illiness History of Present Illness: According to admitting provider: SHERMAN MOONEY is a 54 year old female past medical history of GERD, anxiety, migraine headaches, 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 Patient stated that while at work today she suddenly felt lightheaded and was feeling like she is going to pass out, patient denies any palpitation, prior history of syncope or presyncope, any cardiac history, any seizure disorder, stating that she is very busy at work and has not been eating or drinking much, denies any nausea or vomiting, or any fever, chills, chest pain, abdominal pain, diarrhea, constipation or any urinary symptoms. Patient does take propranolol for her migraine headache and has never had any problem with it. In ED her CBC CMP and troponins were within normal limits, EKG showed sinus rhythm, patient was given a dose of glucagon however patient still remained bradycardic and hospitalist consulted for admission. Hospital Course Hospital Course: Patient presented to the hospital after an episode of presyncope. The episode occurred after patient had been standing for prolonged period of time after work. She describes suddenly feeling lightheaded a little nauseous and then almost passing out. In the hospital, vital signs was remarkable for sinus bradycardia which is likely secondary to her prolonged use of propranolol. Propranolol was discontinued. However, on examination patient had good chronotropic response of her heart rate even despite the bradycardia. She was evaluated by ticker installer. SHe was deemed likely that episode was due to vasovagal response. She was cleared by cardiology. She also experienced migraine headaches while in the hospital was given a migraine cocktail as well as sumatriptan. Her symptoms subsequently improved. Patient did not have any recurrence of her presyncopal symptoms while in the hospital. Given the frequency of her migraine, her propranolol was substituted for topiramate for migraine prophylaxis. She will be discharged to follow-up with Dr. Howell in the clinic for further management of her heart rhythm. Physical Exam Vital Signs: Temp Pulse Resp BP Pulse Ox 98.1 F 50 L 16 126/76 H 97 01/29/20 10:00 01/29/20 08:20 01/29/20 08:20 01/29/20 08:20 01/29/20 08:20 Intake & Output 01/28/20 01/29/20 01/30/20 06:59 06:59 06:59 Intake Total 1280 460 Output Total 300 Balance 1280 160 Weight 79.4 kg 79.4 kg General appearance: PRESENT: no acute distress, cooperative Neck exam: ABSENT: JVD Respiratory exam: PRESENT: unlabored Cardiovascular exam: PRESENT: bradycardia, +S1, +S2. ABSENT: irregular rhythm Neurological exam: PRESENT: alert, awake, oriented to person, oriented to place, oriented to time Results Laboratory Results: WBC 8.0 10^3/uL (4.0-10.5) 01/26/20 20:44 RBC 4.75 10^6/uL (3.72-5.28) 01/26/20 20:44 Hgb 15.1 g/dL (12.0-15.5) 01/26/20 20:44 Hct 44.5 % (36.0-47.0) 01/26/20 20:44 MCV 94 fl (80-97) 01/26/20 20:44 MCH 31.7 pg (27.0-33.4) 01/26/20 20:44 MCHC 33.8 g/dL (32.0-36.0) 01/26/20 20:44 RDW 13.1 % (11.5-14.0) 01/26/20 20:44 Plt Count 262 10^3/uL (150-450) 01/26/20 20:44 Lymph % (Auto) 20.8 % (13-45) 01/26/20 20:44 [place] % (Auto) 9.0 % (3-13) 01/26/20 20:44 Eos % (Auto) 3.9 % (0-6) 01/26/20:44 Baso % (Auto) 0.7 % (0-2) 01/26/20 20:44 Absolute Neuts (auto) 5.3 10^3/uL (1.7-8.2) 01/26/20 20:44 Absolute Lymphs (auto) 1.7 10^3/uL (0.5-4.7) 01/26/20 20:44 Absolute Monos (auto) 0.7 10^3/uL (0.1-1.4) 01/26/20 20:44 Absolute Eos (auto) 0.3 10^3/uL (0.0-0.6) 01/26/20 20:44 Absolute Basos (auto) 0.1 10^3/uL (0.0-0.2) 01/26/20 20:44 Seg Neutrophils % 65.6 % (42-78) 01/26/20 20:44 Sodium 138.5 mmol/L (137-145) 01/26/20 20:44 Potassium 4.8 mmol/L (3.6-5.0) 01/26/20 20:44 Chloride 105 mmol/L (98-107) 01/26/20 20:44 Carbon Dioxide 26 mmol/L (22-30) 01/26/20 20:44 Anion Gap 8 (5-19) 01/26/20 20:44 BUN 12 mg/dL (7-20) 01/26/20 20:44 Creatinine 0.62 mg/dL (0.52-1.25) 01/26/20 20:44 Est GFR ( Amer) > 60 (>60) 01/26/20 20:44 Est GFR (MDRD) Non-Af > 60 (>60) 01/26/20 20:44 Glucose 85 mg/dL (75-110) 01/26/20 20:44 Calcium 8.7 mg/dL (8.4-10.2) 01/26/20 20:44 Total Bilirubin 0.6 mg/dL (0.2-1.3) 01/26/20 20: Direct Bilirubin 0.3 mg/dL (0.0-0.4) 01/26/20 20:44 Neonat Total Bilirubin Not Reportable 01/26/20 20:44 Neonat Direct Bilirubin Not Reportable 01/26/20 20:44 Neonat Indirect Bili Not Reportable 01/26/20 20:44 AST 31 U/L (14-36) 01/26/20 20:44 ALT 31 U/L (<35) 01/26/20 20:44 Alkaline Phosphatase 69 U/L (38-126) 01/26/20 20:44 Creatine Kinase 95 U/L (30-135) 01/26/20 20:44 Troponin I < 0.012 ng/mL 01/26/20 20:44 Total Protein 7.1 g/dL (6.3-8.2) 01/26/20 20:44 Albumin 4.2 g/dL (3.5-5.0) 01/26/20 20:44 TSH 2.36 uIU/mL (0.47-4.68) 01/26/20 20:44 Urine Color YELLOW 01/26/20 20:44 Urine Appearance CLEAR 01/26/20 20:44 Urine pH 6.0 (5.0-9.0) 01/26/20 20:44 Ur Specific [place] 1.011 01/26/20 20:44 Urine Protein NEGATIVE mg/dL (NEGATIVE) 01/26/20 20:44 Urine Glucose (UA) NEGATIVE mg/dL (NEGATIVE) 01/26/20 20:44 Urine Ketones NEGATIVE mg/dL (NEGATIVE) 01/26/20 20:44 Urine Blood NEGATIVE (NEGATIVE) 01/26/20 20:44 Urine Nitrite NEGATIVE (NEGATIVE) 01/26/20:44 Urine Bilirubin NEGATIVE (NEGATIVE) 01/26/20 20:44 Urine Urobilinogen NEGATIVE mg/dL (<2.0) 01/26/20 20:44 Ur Leukocyte Esterase NEGATIVE (NEGATIVE) 01/26/20 20:44 Urine Mucus (Auto) RARE /LPF 01/26/20 20:44 Urine Ascorbic Acid NEGATIVE (NEGATIVE) 01/26/20 20:44 01/26/20 20:44 Troponin I < 0.012 Impressions: Chest X-Ray 01/26/20 23:11 IMPRESSION: No evidence of active intrathoracic disease. Plan Time Spent: Less than 30 Minutes Stroke Is this a Stroke Patient?: No Acute Heart Failure - Is this a Heart Failure Patient?: No
[2020-01-29 13:20] VITALS: BP 164/85
== END 2020-01-29 13:57 | disposition home or self-care (01) ==
LOC: ER 20:06 → EH 01-27 04:21 → INTOOBSV 01-27 04:21 → 4N 01-27 06:15
PROVIDERS: ADMIT Internal Medicine; ATTEND Internal Medicine
DX: R55 Syncope and collapse (principal); R00.1 Bradycardia, unspecified; G43.909 Migraine, unspecified, not intractable, without status migrainosus; F17.210 Nicotine dependence, cigarettes, uncomplicated; R11.0 Nausea; R05 Cough; R06.02 Shortness of breath; R53.1 Weakness; R11.2 Nausea with vomiting, unspecified; K21.9 Gastro-esophageal reflux disease without esophagitis; F32.9 Major depressive disorder, single episode, unspecified; M71.559 Other bursitis, not elsewhere classified, unspecified hip; Z79.899 Other long term (current) drug therapy; F12.10 Cannabis abuse, uncomplicated; Z79.1 Long term (current) use of non-steroidal anti-inflammatories (NSAID)
CPT/HCPCS: 93005; 96376; 99285; 96361; 96374; 36415 ×2; 87086; 82550; 84443; 85025; 80053; 81001; 84484; 71045; 93010; G0378 ×2; J1644; J1200; J1610; J1885; J2765; J3490 ×5; J2405; J7120